=== PATIENT | male | born 1995 | race Two or more races ===

== ENCOUNTER 2022-10-29 08:12 | Emergency (ER) | payer OTHER ==
[~2022-10-29] VITALS: Ht 167.6 cm; Wt 68.0 kg
--- NOTE | 2022-10-29 08:20 | NUR ---
TO ER BED 11, BIBRA 89 C/O SEIZURE LIKE ACTIVITY IN BED WITNESSED BY GIRLFRIEND. AAOX3, PT DENIES ANY HISTORY OF SEIZURE, BREATHING EVEN AND NON LABORED, CONNECTED TO MONITOR.
[2022-10-29] MEDS ORDERED: IV NS 0.9% 1,000 ML BAG IV ONE (09:00)
--- NOTE | 2022-10-29 09:11 | NUR ---
TAKEN TO CT VIA BABAR
[2022-10-29 09:29] LABS: BASOPHILS % (AUTO) 0.2 % (0.0-2.0); EOSINOPHILS % (AUTO) 1.1 % (0.0-6.0); HEMATOCRIT 47 % (39-51); HEMOGLOBIN 15.9 g/dL (13.5-17.5); LYMPHOCYTES # (AUTO) 1.6 K/uL (0.8-4.8); LYMPHOCYTES % (AUTO) 23.4 % (20.0-44.0); MEAN CORPUSCULAR HGB CONC 34 g/dl (31.0-36.0); MEAN CORPUSCULAR VOLUME 89 fL (80-96); MONOCYTES # (AUTO) 0.8 K/uL (0.1-1.30); MONOCYTES % (AUTO) 12.5 % (2.0-12.0); NEUTROPHILS # (AUTO) 4.2 K/uL (1.8-8.9); NEUTROPHILS % (AUTO) 62.8 % (43.0-81.0); PLATELET COUNT (AUTO) 251 K/uL (150-450); WHITE BLOOD COUNT (AUTO) 6.6 K/uL (4.3-11.0)
[2022-10-29 09:40] LABS: ALANINE AMINOTRANSFERASE 40 U/L (12-78); ALBUMIN 4.1 g/dL (3.4-5.0); ALCOHOL, BLOOD < 3 mg/dL (0-0); ALKALINE PHOSPHATASE 90 U/L (46-116); ASPARTATE AMINOTRANSFERASE 16 U/L (15-37); BILIRUBIN,DIRECT 0.1 mg/dL (0.0-0.2); BILIRUBIN,TOTAL 0.2 mg/dL (0.2-1.0); CALCIUM, SERUM 8.6 mg/dL (8.5-10.1); CARBON DIOXIDE 31 mmol/L (21-32); CHLORIDE 103 mmol/L (98-107); CREATININE 1.1 mg/dL (0.6-1.3); GLUCOSE 102 mg/dL (74-106); POTASSIUM 3.6 mmol/L (3.5-5.1); SODIUM SERUM 139 mmol/L (136-145); TOTAL PROTEIN, SERUM 7.7 g/dL (6.4-8.2); UREA NITROGEN, BLOOD 10 mg/dL (7-18)
--- NOTE | 2022-10-29 09:45 | NUR ---
URINE COLLECTED AND SENT TO LAB
[2022-10-29] MEDS ORDERED: LORAZEPAM INJ 2 MG/ML VIAL ONE (11:33)
--- NOTE | 2022-10-29 11:41 | NUR ---
COVID SWAB DONE AND SENT TO LAB
[2022-10-29] MEDS ORDERED: ESCI10TA PO (11:51)
[2022-10-29] MEDS ORDERED: LORAZEPAM INJ 2 MG/ML VIAL IV ONE (12:00)
[2022-10-29] MEDS ORDERED: LEVETIRACETAM (500MG) 500 MG in IV NS 0.9% 100 ML IV SCH (12:00)
--- NOTE | 2022-10-29 12:06 | NUR ---
MOVE SHEET SUBMITTED
--- NOTE | 2022-10-29 14:10 | NUR ---
PER NIDIA OF [facility], PATIENT IS ACCEPTED UNDER DR GARCIA OF [facility]. FAX ALL CLINICALS TO [phone], PHONE NUMBER [phone]
--- NOTE | 2022-10-29 14:24 | NUR ---
NIDIA FROM [facility] ([phone]) ASKING FOR DR SMALL AND COVID RESULT TO BE FAXED TO [phone] Addendum: 10/29/22 at 1504 by CRISTINA NIDIA FROM [facility] ([phone]) ASKING FOR DR SMALL AND COVID RESULT TO BE FAXED TO [phone]
--- NOTE | 2022-10-29 17:35 | NUR ---
CALLED [facility]. NO ANSWER LEFT MERVIN.
--- NOTE | 2022-10-29 19:18 | NUR ---
CALLED [facility] ([phone]) AND SPOKE WITH NURSING SUP. CONFIRMED THAT PATIENT IS ACCEPTED AT [facility].
--- NOTE | 2022-10-29 19:52 | NUR ---
[facility] ETA [id number]
--- NOTE | 2022-10-29 20:00 | NUR ---
TRANSFER INFO: [facility] EM[facility]GENCY [facility]PT, ACCEPTED BY DR KAMRYN GARCIA, RN FOR REPORT [phone], [facility] ETA 90 MINUTES
--- NOTE | 2022-10-29 20:59 | NUR ---
REPORT GIVEN TO ANAY MIXON RN FROM [facility]
[2022-10-29 21:15] VITALS: BP 115/68
--- NOTE | 2022-10-29 21:23 | NUR ---
REPORT GIVEN TO CARA. [facility] AT PT'S BEDSIDE TO TRANSFER PT TO [facility]. [facility].
== END 2022-10-29 21:30 | disposition short-term general hospital (02) ==
LOC: ER 08:24
DX: G40.909 Epilepsy, unspecified, not intractable, without status epilepticus (principal); Z20.822 Contact with and (suspected) exposure to COVID-19; E87.20 Acidosis, unspecified
CPT/HCPCS: 99291; 96365; 96361; 96375; 93005; 71045; 70450; 85025; 80048; 83605 ×2; 80076; 36415; 85730; 87426; 80320; 80307; J2060; J7030 ×2; J1953; C9803; G0480